=== PATIENT | male | born 1960 | race Caucasian/White ===

== ENCOUNTER 2019-05-04 00:50 | Emergency (ER) | payer MEDICAID ==
[2019-05-04] MEDS ORDERED: Bupivacaine 0.5% 30 ML SDV INJECT ONE (00:52)
[2019-05-04] MEDS ORDERED: Folic Acid 1 MG Tab PO ONE (00:57)
[2019-05-04] MEDS ORDERED: Diphtheria,Pertussis(Acell),Tetanus Vaccine 0.5 ML SDV IM ONE (00:57)
--- NOTE | 2019-05-04 00:58 | EDM.PDOC ---
ED HPI GENERAL MEDICAL PROBLEM - General Stated Complaint: LACERATION ON LOWER RT LEG Time Seen by Provider: 05/04/19 00:51 Source of Information: Reports: Patient, EMS History Limitations: Reports: Intoxication - History of Present Illness INITIAL COMMENTS - FREE TEXT/NARRATIVE: 58 y.o.w.m with a H/O ETOH abuse, H/O R lower leg DVT, came to the ED by EMS after injuring his R leg after a fall, being drunk. Pt is a poor historian, no Family is present. Pt stated, he was on Coumadin for a while, but decided himself to stop taking it. No N/V/D No SOB or C/P. Pt stated he drinks nearly every day, Beer only. No F/C no other injury. No other acute med issues. BP 150/ 99 RR 18 Pulse ox 95% on RA Pulse 95 Temp 36.6 Onset Date: 05/03/19 Onset Time: 23:00 Duration: Minutes:, Hour(s): Location: Reports: Lower Extremity, Right Quality: Reports: Dull Severity: Moderate Improves with: Reports: Rest Worsens with: Reports: Movement Context: Reports: Trauma Associated Symptoms: Reports: Other (intoxicated) - Related Data Allergies Allergy/AdvReac Type Severity Reaction Status Date / Time Unable to Assess Allergy Unverified 05/04/19 02:21 Home Meds: Home Meds Cephalexin [Keflex] 500 mg PO Q6HR #40 capsule 05/04/19 [Rx] ED ROS GENERAL - Review of Systems Review Of Systems: Unable To Obtain (intoxicated) ED EXAM, SKIN/RASH Exam: See Below Exam Limited By: Intoxication General Appearance: Alert, WD/WN, Mild Distress Eye Exam: Bilateral Eye: Normal Inspection Ears: Normal External Exam Nose: Normal Inspection, Other Throat/Mouth: Normal Lips, Normal Voice, No Airway Compromise Head: Atraumatic, Normocephalic Neck: Normal Inspection, Supple, Non-Tender, Full Range of Motion Respiratory/Chest: No Respiratory Distress, Lungs Clear, Normal Breath Sounds Cardiovascular: Normal Peripheral Pulses, Regular Rate, Rhythm, No Edema, No Gallop, No JVD, No Murmur, No Rub Peripheral Pulses: 2+: Radial (L) GI/Abdominal: Normal Bowel Sounds, Soft, Non-Tender, No Organomegaly, No Mass, Pelvis Stable (Male) Exam: Deferred Rectal (Males) Exam: Deferred Back Exam: Normal Inspection, Full Range of Motion Extremities: Normal Range of Motion, Non-Tender, Normal Capillary Refill, Other (LAC rightlower leg, right lower leg is swollen. Pt has H/O DVT R lower leg. was on coumadin) Neurological: Alert, Oriented, CN II-XII Intact, Abnormal Gait (intoxicated) Psychiatric: Normal Affect, Normal Mood Skin: Warm, Dry, Normal Color, No Rash, Wound/Incision (right lower leg) Lymphatic: No Adenopathy ED SKIN PROCEDURES - Laceration/Wound Repair Right Lower Lateral Leg Lac/Wound length In cm: 10 Appearance: Subcutaneous, Mildly Contaminated, Other (L shaped ) Distal NVT: Neuro & Vascular Intact, No Tendon Injury Anesthetic Type: Local Local Anesthesia - Bupivicaine (Marcaine): 0.5% Plain Local Anesthetic Volume: 5cc Skin Prep: Chlorhexidine (Hibiciens) Saline Irrigation (cc's): 20 Exploration/Debridement/Repair: Wound Explored, In a Bloodless Field, Explored to Base Suture Size: 3-0 # of Sutures: 10 Suture Type: Other (ethilon) Sterile Dressing Applied: Nurse Tetanus Status Addressed: Yes (today) Complications: No Course - Vital Signs Text/Narrative:: 58 y.o.w.m with a H/O ETOH abuse, H/O R lower leg DVT, came to the ED by EMS after injuring his R leg after a fall, being drunk. Pt is a poor historian, no Family is present. Pt stated, he was on Coumadin for a while, but decided himself to stop taking it. No N/V/D No SOB or C/P. Pt stated he drinks nearly every day, Beer only. No F/C no other injury. No other acute med issues. BP 150/ 99 RR 18 Pulse ox 95% on RA Pulse 95 Temp 36.6 PE: Intoxicated 56 y.o.w.m with a laceration R lower leg Imaging: Not indicated Labs: CBC nl except HCT was 52.3, BMP nl GFR was 57 ETOH was 0.37 Procedure: Please see note above Impression: ETOH abuse, L shaped right lower leg LAC Tx; NS, Folic acid, TD immunization, wound care Reexam: Improved. Pt was ambulating well. was Ox3 in D/C Plan: Pt's sister arrived in the ED and will give the Pt a ride home. His sister will observe him for next 24 hours. Last Recorded V/S: Last Vital Signs Temp 36.4 C 05/04/19 00:50 Pulse 96 05/04/19 00:50 Resp 18 05/04/19 00:50 BP 150/99 H 05/04/19 00:50 Pulse Ox 96 05/04/19 00:50 - Orders/Labs/Meds Orders: Active Orders 24 hr Category Date Time Status Vaccines to be Administered [RC] PER UNIT ROUTINE Care 05/04/19 00:57 Active Sodium Chloride 0.9% [Normal Saline] 1,000 ml Med 05/04/19 02:30 Active IV ASDIRECTED Medication Orders Sodium Chloride (Normal Saline) 1,000 mls @ 125 mls/hr IV ASDIRECTED TAMI Last Admin: 05/04/19 03:45 Dose: 125 mls/hr Labs: Laboratory Tests 05/04/19 05/04/19 05/04/19 Range/Units 01:20 01:20 01:20 WBC 9.5 (4.5-12.0) X10-3/uL RBC 5.44 (4.30-5.75) x10(6)uL Hgb 17.5 (13.5-17.8) g/dL Hct 52.3 H (30.0-51.3) % MCV 96.1 H (80-96) fL MCH 32.1 (27.7-33.6) pg MCHC 33.4 (32.2-35.4) g/dL RDW 13.5 (11.5-15.5) % Plt Count 291 (125-369) X10(3)uL MPV 7.4 (7.4-10.4) fL Neut % (Auto) 59.3 (46-82) % Lymph % (Auto) 30.9 (13-37) % [place] % (Auto) 8.2 (4-12) % Eos % (Auto) 1 (1.0-5.0) % Baso % (Auto) 1 (0-2) % Neut # (Auto) 5.6 (1.6-8.3) # Lymph # (Auto) 2.9 (0.6-5.0) # [place] # (Auto) 0.8 (0.0-1.3) # Eos # (Auto) 0.1 (0.0-0.8) # Baso # (Auto) 0.1 (0.0-0.2) # Sodium 138 (135-145) mmol/L Potassium 4.0 (3.5-5.3) mmol/L Chloride 102 (100-110) mmol/L Carbon Dioxide 22 (21-32) mmol/L BUN 9 (7-18) mg/dL Creatinine 1.3 (0.70-1.30) mg/dL Est Cr Clr Drug Dosing TNP Estimated GFR (MDRD) 57 L (>60) BUN/Creatinine Ratio 6.9 L (9-20) Glucose 97 (80-116) mg/dL Calcium 8.8 (8.6-10.2) mg/dL Ethyl Alcohol 0.37 H* (<0.03) % Meds: Medications Generic Name Dose Route Start Last Admin Trade Name Freq PRN Reason Stop Dose Admin Sodium Chloride 1,000 mls @ 125 mls/hr 05/04/19 02:30 05/04/19 03:45 Normal Saline IV 125 mls/hr ASDIRECTED TAMI Administration Discontinued Medications Generic Name Dose Route Start Last Admin Trade Name Freq PRN Reason Stop Dose Admin Diphtheria/Tetanus/Acell Pertussis 0.5 ml 05/04/19 00:57 05/04/19 02:55 Adacel IM 05/04/19 00:58 0.5 ml .ONCE ONE Administration Folic Acid 1 mg 05/04/19 00:57 05/04/19 02:54 Folic Acid PO 05/04/19 00:58 1 mg ONETIME ONE Administration Sodium Chloride 1,000 mls @ 999 mls/hr 05/04/19 01:00 05/04/19 03:42 Normal Saline IV 999 mls/hr .BOLUS TAMI Administration Departure - Departure Time of Disposition: 03:20 Disposition: Home, Self-Care 01 Condition: Good Clinical Impression: ETOH abuse, Laceration - Discharge Information Prescriptions: Cephalexin [Keflex] 500 mg PO Q6HR #40 capsule Referrals: PCP,None [Primary Care Provider] - Forms: ED Department Discharge Additional Instructions: Please increase water intake, please stop drinking ETOH, please apply Neosporin to wound twice daily, Keflex as recommended, wound check in 2-3 days, suture removal in 14 days, please come back if your symptoms get worse acutely - My Orders Last 24 Hours: My Active Orders 05/04/19 00:57 Vaccines to be Administered [RC] PER UNIT ROUTINE 05/04/19 02:30 Sodium Chloride 0.9% [Normal Saline] 1,000 ml IV ASDIRECTED - Assessment/Plan Last 24 Hours: My Active Orders 05/04/19 00:57 Vaccines to be Administered [RC] PER UNIT ROUTINE 05/04/19 02:30 Sodium Chloride 0.9% [Normal Saline] 1,000 ml IV ASDIRECTED
[2019-05-04] MEDS: Sodium Chloride 0.9% 1,000 ML IV SCH ×2 (01:45→03:42)
[2019-05-04] MEDS ORDERED: Sodium Chloride 0.9% 1,000 ML IV SCH (02:30)
== END 2019-05-04 04:25 | disposition home or self-care (01) ==
LOC: FB.ED 00:51
DX: S81.811A Laceration without foreign body, right lower leg, initial encounter (principal); F10.129 Alcohol abuse with intoxication, unspecified; Y90.8 Blood alcohol level of 240 mg/100 ml or more; Z79.01 Long term (current) use of anticoagulants; Z86.718 Personal history of other venous thrombosis and embolism; Z23 Encounter for immunization; W18.39XA Other fall on same level, initial encounter
CPT/HCPCS: 12004; 36415; 80048; 85025; 90471; 90715; 96360; 96361; 99283; A9270; G0480; J3490; J7030

== ENCOUNTER 2019-06-16 12:53 | Emergency (ER) | payer MEDICAID ==
[2019-06-16] MEDS ORDERED: Iopamidol 755 MG/ML 150 ML Bottle IV ONE (16:00)
[2019-06-16] MEDS ORDERED: Enoxaparin 150 MG/1 ML Syringe SUBCUT ONE (16:58)
--- NOTE | 2019-06-16 17:23 | EDM.PDOC ---
ED HPI GENERAL MEDICAL PROBLEM - General Chief Complaint: Lower Extremity Injury/Pain Stated Complaint: RIGHT LEG SWELLING Time Seen by Provider: 06/16/19 13:18 Source of Information: Reports: Patient, Old Records History Limitations: Reports: No Limitations - History of Present Illness INITIAL COMMENTS - FREE TEXT/NARRATIVE: Patient is a pleasant 58-year-old male who presents with concern for right leg swelling and slight shortness of breath. Patient reports that in 2005 he had a history of a clot in his left femoral vein , he was subsequently on Coumadin but then stopped it because it quite erratic due to his beer consumption. He has not had any trouble over the last 13 years. Approximately one month ago he was seen here in the emergency room for a cut on his right leg sustained while he had been drinking. He had stitches placed here , was started on antibiotics and then had dressing changes for a while. That lesion has never really healed. His right leg has always been swollen relative to the left. On Sunday he noticed that it was more painful than usual while he was out mowing the lawn. He also noticed that he was short of breath and had to stop a couple of extra times, but has not really had any other symptoms. He has not had any chest pain, cough, he has not felt lightheaded or dizzy, he has not had any fever, chills or sweats. His right leg continued to hurt over the weekend and his short of breath has not improved. He presented to the walk-in clinic today and was transferred to the emergency room with concern for DVT/PE. Possible family history of clotting disorder, his mother of a clot after hip replacement. No recent long car rides or airplane rides. - Related Data Allergies Allergy/AdvReac Type Severity Reaction Status Date / Time No Known Allergies Allergy Verified 06/16/19 17:27 Home Meds: Home Meds . [No Known Home Meds] 1 ea .XX ASDIRECTED 06/16/19 [History] Past Medical History Cardiovascular History: Reports: Blood Clots/VTE/DVT Psychiatric History: Reports: Other (See Below) Other Psychiatric History: History of alcohol overuse. Social & Family History - Family History Cardiac: Reports: Blood Clots/VTE/DVT - Tobacco Use Smoking Status *Q: Former Smoker Tobacco Use Within Last Twelve Months: Smokeless Tobacco - Alcohol Use Alcohol Use History: Yes Days Per Week of Alcohol Use Comment: 7 Total Drinks Per Week Comment: 4 twelve packs beer - Recreational Drug Use Recreational Drug Use: No - Living Situation & Occupation Occupation: Unemployed Review of Systems - Review of Systems Review Of Systems: ROS reveals no pertinent complaints other than HPI. ED EXAM, GENERAL - Physical Exam Exam: See Below Free Text/Narrative:: Gen.: Alert, pleasant no acute distress. Head is atraumatic, pupils equal and reactive. Throat without erythema mucous members are moist. Neck is supple and there is no cervical adenopathy. Lungs are clear throughout with good air movement no wheezes heard. Heart is regular rate and rhythm. Abdomen positive bowel sounds, soft nondistended nontender. Peripheral pulses +2 in the upper extremities and left lower extremity. There is a palpable dorsalis pedis pulse in the right lower extremity. The right lower extremity is significantly swollen as compared to the left with the swelling extending well above the knee. The lower part of the leg is reddened but nontender. There is an approximately 2 x 3 cm lesion on the lateral side of the leg with black eschar over the top of it and no discharge. Course - Vital Signs Text/Narrative:: History concerning for blood clot, also possible PE. Labs ordered, will get lower extremity ultrasound. Patient is hemodynamically stable and in no distress - Orders/Labs/Meds Orders: Active Orders 24 hr Category Date Time Status CTA Abd Pelv w Cont [CT] Stat Exams 06/16/19 15:35 Ordered VL Duplex Lwr Ext Veins Ltd Rt [US] Stat Exams 06/16/19 14:13 Taken Labs: Laboratory Tests 06/16/19 06/16/19 06/16/19 Range/Units 13:20 13:20 13:20 WBC 7.1 (4.5-12.0) X10-3/uL RBC 5.13 (4.30-5.75) x10(6)uL Hgb 16.0 (13.5-17.8) g/dL Hct 48.4 (30.0-51.3) % MCV 94.4 (80-96) fL MCH 31.2 (27.7-33.6) pg MCHC 33.0 (32.2-35.4) g/dL RDW 13.4 (11.5-15.5) % Plt Count 262 (125-369) X10(3)uL MPV 7.6 (7.4-10.4) fL Neut % (Auto) 53.5 (46-82) % Lymph % (Auto) 31.1 (13-37) % [place] % (Auto) 9.7 (4-12) % Eos % (Auto) 5 (1.0-5.0) % Baso % (Auto) 1 (0-2) % Neut # (Auto) 3.8 (1.6-8.3) # Lymph # (Auto) 2.2 (0.6-5.0) # [place] # (Auto) 0.7 (0.0-1.3) # Eos # (Auto) 0.4 (0.0-0.8) # Baso # (Auto) 0.0 (0.0-0.2) # Sodium 139 (135-145) mmol/L Potassium 4.2 (3.5-5.3) mmol/L Chloride 105 (100-110) mmol/L Carbon Dioxide 24 (21-32) mmol/L BUN 16 (7-18) mg/dL Creatinine 1.3 (0.70-1.30) mg/dL Est Cr Clr Drug Dosing TNP Estimated GFR (MDRD) 57 L (>60) BUN/Creatinine Ratio 12.3 (9-20) Glucose 105 (80-116) mg/dL Lactic Acid (0.4-2.2) mmol/L Calcium 9.0 (8.6-10.2) mg/dL Total Bilirubin 0.8 (0.1-1.3) mg/dL AST 24 (5-25) IU/L ALT 33 (12-36) U/L Alkaline Phosphatase 104 (56-112) IU/L Troponin I < 0.017 L (<0.017-0.056) ng/mL C-Reactive Protein 3.6 H* (0.5-0.9) mg/dL Total Protein 7.4 (6.0-8.0) g/dL Albumin 3.4 L (3.5-5.2) g/dL Globulin 4.0 g/dL Albumin/Globulin Ratio 0.9 09/16/19 Range/Units 13:20 WBC (4.5-12.0) X10-3/uL RBC (4.30-5.75) x10(6)uL Hgb (13.5-17.8) g/dL Hct (30.0-51.3) % MCV (80-96) fL MCH (27.7-33.6) pg MCHC (32.2-35.4) g/dL RDW (11.5-15.5) % Plt Count (125-369) X10(3)uL MPV (7.4-10.4) fL Neut % (Auto) (46-82) % Lymph % (Auto) (13-37) % [place] % (Auto) (4-12) % Eos % (Auto) (1.0-5.0) % Baso % (Auto) (0-2) % Neut # (Auto) (1.6-8.3) # Lymph # (Auto) (0.6-5.0) # [place] # (Auto) (0.0-1.3) # Eos # (Auto) (0.0-0.8) # Baso # (Auto) (0.0-0.2) # Sodium (135-145) mmol/L Potassium (3.5-5.3) mmol/L Chloride (100-110) mmol/L Carbon Dioxide (21-32) mmol/L BUN (7-18) mg/dL Creatinine (0.70-1.30) mg/dL Est Cr Clr Drug Dosing Estimated GFR (MDRD) (>60) BUN/Creatinine Ratio (9-20) Glucose (80-116) mg/dL Lactic Acid 1.0 (0.4-2.2) mmol/L Calcium (8.6-10.2) mg/dL Total Bilirubin (0.1-1.3) mg/dL AST (5-25) IU/L ALT (12-36) U/L Alkaline Phosphatase (56-112) IU/L Troponin I (<0.017-0.056) ng/mL C-Reactive Protein (0.5-0.9) mg/dL Total Protein (6.0-8.0) g/dL Albumin (3.5-5.2) g/dL Globulin g/dL Albumin/Globulin Ratio Meds: Medications Discontinued Medications Generic Name Dose Route Start Last Admin Trade Name Freq PRN Reason Stop Dose Admin Enoxaparin Sodium 150 mg 06/16/19 16:58 Lovenox SUBCUT 06/16/19 16:59 ONETIME ONE Iopamidol 150 ml 06/16/19 16:00 06/16/19 16:22 Isovue-370 (76%) IV 06/16/19 16:01 146 ml ONETIME ONE Administration - Re-Assessments/Exams Free Text/Narrative Re-Assessment/Exam: 06/16/19 right leg positive for deep venous thrombosis to the top of the iliac crest. Further imaging ordered, creatinine 1.3 Free Text/Narrative Re-Assessment/Exam: 06/16/19 radiology report called, he has a left main pulmonary artery embolus and a DVT up to the inguinal region. Discussed transfer with patient and he is in agreement. He remains hemodynamically stable with no distress. Call placed to Dr. Daniel Vazquez accepting. Lovenox 150mg SC to be given prior to transfer. Departure - Departure Time of Disposition: 17:28 Disposition: DC/Tfer to Acute Hospital 02 Condition: Fair Clinical Impression: Pulmonary embolism, Deep venous thrombosis - Discharge Information *PRESCRIPTION DRUG MONITORING PROGRAM REVIEWED*: Not Applicable *COPY OF PRESCRIPTION DRUG MONITORING REPORT IN PATIENT ROBBIN: Not Applicable Referrals: PCP,None [Primary Care Provider] - Forms: ED Department Discharge - My Orders Last 24 Hours: My Active Orders 06/16/19 14:13 VL Duplex Lwr Ext Veins Ltd Rt [US] Stat 06/16/19 15:35 CTA Abd Pelv w Cont [CT] Stat - Assessment/Plan Last 24 Hours: My Active Orders 06/16/19 14:13 VL Duplex Lwr Ext Veins Ltd Rt [US] Stat 06/16/19 15:35 CTA Abd Pelv w Cont [CT] Stat
[2019-06-16] MEDS ORDERED: Enoxaparin 100 MG/1 ML Syringe SUBCUT ONE (17:30)
[2019-06-16] MEDS ORDERED: Enoxaparin 100 MG/1 ML Syringe ONE (17:30)
[2019-06-16] MEDS ORDERED: Enoxaparin 60 MG/0.6 ML Syringe SUBCUT ONE (17:30)
[2019-06-16] MEDS ORDERED: Enoxaparin 60 MG/0.6 ML Syringe ONE (17:30)
--- NOTE | 2019-06-17 08:33 | US ---
INDICATION: Swelling, question DVT. DUPLEX ULTRASOUND, RIGHT LOWER EXTREMITY VEINS: Utilizing 2-D real time duplex Doppler spectral analysis and color flow imaging, examination of the right lower extremity veins revealed abnormal compression at the common femoral vein, deep femoral vein, proximal, mid, and distal femoral vein, and popliteal vein. Findings are compatible with deep venous thrombosis throughout the thigh, probably extending into the iliac area slightly but unable to be visualized further. The calf area was not well seen due to the fairly marked swelling present. IMPRESSION: Extensive deep venous thrombosis right lower extremity. MTDD
--- NOTE | 2019-06-17 08:59 | CT ---
INDICATION: DVT right leg, question PE. CT ANGIOGRAPHY OF THE CHEST WITH CONTRAST: Spiral 1.25 mm axial sections were obtained through the chest, abdomen, and pelvis with immediate imaging of the chest, utilizing 150 mL Isovue 370 at 2.5 mL/second, to visualize pulmonary arteries and the venous structures in the lower abdomen and pelvis area. Total exam DLP = 2,096.96 mGy-cm. Examination of the chest with contrast, as noted above, revealed minimal pulmonary emboli in the right lower lobe in a second order pulmonary artery of the lower lobe. There are some infiltrative changes in the left lower lobe, which may be related to the pulmonary embolus in that area. On the right, there are multiple pulmonary emboli extending from the main pulmonary artery into upper lobe and lower lobe pulmonary arteries. The largest embolus, most contiguous embolus, is in the upper lobe second and third order pulmonary arteries. There are some peripheral parenchymal changes in the left lower lobe, which may be related to the pulmonary emboli also but should be correlated clinically. The aorta appears to be intact with some calcification in the arch. The heart did not appear enlarged. No pericardial effusion was seen. No mediastinal mass was identified. IMPRESSION: Multiple pulmonary emboli. Report was called to Dr. Miranda immediately after the examination was completed on 06/16/19. [facility]
--- NOTE | 2019-06-17 09:01 | CT ---
INDICATION: Right leg clot, question distribution. CT ABDOMEN AND PELVIS WITH CONTRAST FOR ARTERIOGRAPHY: Spiral 1.25 mm axial sections were obtained through the chest, abdomen, and pelvis with immediate imaging of the chest, utilizing 150 mL Isovue 370 at 2.5 mL/second, to visualize pulmonary arteries and the venous structures in the lower abdomen and pelvis area. Total exam DLP = 2,096.96 mGy-cm. Examination of the abdomen and pelvis was obtained initially at the time of pulmonary angiography and then repeated after a delay and revealed dilatation of the right lower extremity upper thigh veins with filling defect, compatible with fairly extensive deep venous thrombosis extending to the inguinal area with perhaps very minimal clot in the proximal iliac vein in that area - inguinal. No clot was seen in the IVC or the main iliac vein distal to the inguinal area. The liver, gallbladder, adrenal glands, kidneys, spleen, and pancreas appear to be normal. The common bile duct did not appear enlarged. No retroperitoneal masses were seen. There is some minimal retroperitoneal lymphadenopathy, which is nonspecific. The appendix appeared normal, visualized on axial images #71 through #78. No evidence of free air or bowel obstruction was seen. Urinary bladder was unremarkable. Some minimal calcification is noted in the prostate. The L4-5 disk space is markedly diminished with minimal vacuum disk phenomenon and mild hypertrophic changes, compatible with degenerative disk disease at that level. IMPRESSION: 1. Deep venous thrombosis in the common femoral vein on the right, extending into the thigh but not significantly extending into the iliac vein. 2. Degenerative changes and disk disease L4-5. Report was called to Dr. Miranda immediately after the examination was completed on 06/16/19. [facility]
== END 2019-06-16 18:20 ==
LOC: FB.ED 12:53
DX: I26.99 Other pulmonary embolism without acute cor pulmonale (principal); I82.421 Acute embolism and thrombosis of right iliac vein; Z87.891 Personal history of nicotine dependence
CPT/HCPCS: 36415; 71275; 74174; 80053; 83605; 84484; 85025; 86140; 93971-RT; 96372; 99285-25; J1650; Q9967

== ENCOUNTER 2020-03-13 11:08 | Emergency (ER) | payer MEDICAID ==
[2020-03-13] MEDS ORDERED: Lidocaine 1% with EPINEPHrine 1:100,000 20 ML MDV INFILT ONE (11:09)
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
[2020-03-13] MEDS: Sodium Chloride 0.9% 1,000 ML IV SCH (11:30)
[2020-03-13] MEDS ORDERED: Sodium Chloride 0.9% 10 ML Syringe FLUSH PRN (11:36)
[2020-03-13] MEDS: Iopamidol 755 Mg/ML 100 ML Bottle IV ONE (13:13)
[2020-03-13] MEDS: Sodium Chloride 0.9% 500 ML IV ONE (15:53)
== END 2020-03-13 17:00 | disposition home or self-care (01) ==
LOC: FB.ED 11:08
DX: S01.81XA Laceration without foreign body of other part of head, initial encounter (principal); S50.311A Abrasion of right elbow, initial encounter; S80.212A Abrasion, left knee, initial encounter; S80.211A Abrasion, right knee, initial encounter; N17.9 Acute kidney failure, unspecified; E86.0 Dehydration; F10.120 Alcohol abuse with intoxication, uncomplicated; Z86.711 Personal history of pulmonary embolism; Z79.01 Long term (current) use of anticoagulants; V19.9XXA Pedal cyclist (driver) (passenger) injured in unspecified traffic accident, initial encounter; Y90.7 Blood alcohol level of 200-239 mg/100 ml
CPT/HCPCS: 12015; 36415; 70450; 71260; 72125; 74177; 80053; 80307; 81001; 85025; 86850; 86900; 86901; 96360; 99285-25; J7030; Q9967

== ENCOUNTER 2021-02-04 19:33 | Emergency (ER) | payer MEDICAID ==
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
== END 2021-02-04 23:40 | disposition home or self-care (01) ==
LOC: EDBD → EDUNIT# 19:33 → FB.ED 19:33
DX: S01.01XA Laceration without foreign body of scalp, initial encounter (principal); Z79.01 Long term (current) use of anticoagulants; F10.129 Alcohol abuse with intoxication, unspecified; Y90.8 Blood alcohol level of 240 mg/100 ml or more; Y04.0XXA Assault by unarmed brawl or fight, initial encounter
CPT/HCPCS: 12001; 36415; 70450; 80053; 80307; 85025; 85610; 86140; 99285-25

== ENCOUNTER 2023-03-20 20:45 | Emergency (ER) | payer OTHER, MEDICAID ==
[2023-03-20] MEDS: Cephalexin 500 MG Cap PO ONE (22:50)
== END 2023-03-20 22:47 | disposition home or self-care (01) ==
LOC: FB.ED 20:45
DX: S81.811A Laceration without foreign body, right lower leg, initial encounter (principal); E66.9 Obesity, unspecified; Z72.0 Tobacco use; Z79.01 Long term (current) use of anticoagulants; Z68.38 Body mass index [BMI] 38.0-38.9, adult; V29.99XA Rider (driver) (passenger) of other motorcycle injured in unspecified traffic accident, initial encounter
CPT/HCPCS: 12004; 99282